=== PATIENT | male | born 1940 | race Caucasian/White ===

== ENCOUNTER 2016-06-10 11:06 | Outpatient (CLI) | payer MEDICARE | END 2016-06-10 11:07 | disposition home or self-care (01) | DX: I48.0 Paroxysmal atrial fibrillation (principal) ==

== ENCOUNTER 2016-07-27 15:16 | Outpatient (CLI) | payer MEDICARE | END 2016-07-27 15:17 | disposition home or self-care (01) | DX: I48.0 Paroxysmal atrial fibrillation (principal) ==

== ENCOUNTER 2016-11-16 10:27 | Outpatient (CLI) | payer MEDICARE | END 2016-11-16 10:28 | disposition home or self-care (01) | LOC: LAB.F 10:27 | PROVIDERS: ATTEND Physician Assistant | DX: I48.0 Paroxysmal atrial fibrillation (principal) | CPT/HCPCS: 85610 ==

== ENCOUNTER 2017-01-05 12:35 | Outpatient (CLI) | payer MEDICARE | END 2017-01-05 12:36 | disposition home or self-care (01) | LOC: LAB.F 12:35 | PROVIDERS: ATTEND Physician Assistant | DX: I48.0 Paroxysmal atrial fibrillation (principal) | CPT/HCPCS: 85610 ==

== ENCOUNTER 2017-05-03 11:10 | Outpatient (CLI) | payer MEDICARE | END 2017-05-03 11:11 | disposition home or self-care (01) | LOC: LAB.F 11:10 | PROVIDERS: ATTEND Physician Assistant | DX: I48.0 Paroxysmal atrial fibrillation (principal) | CPT/HCPCS: 85610 ==

== ENCOUNTER 2017-05-26 09:38 | Outpatient (CLI) | payer MEDICARE | END 2017-05-26 09:39 | disposition home or self-care (01) | LOC: LAB.F 09:38 | PROVIDERS: ATTEND Physician Assistant | DX: I48.0 Paroxysmal atrial fibrillation (principal) | CPT/HCPCS: 85610 ==

== ENCOUNTER 2017-09-23 15:04 | Outpatient (CLI) | payer MEDICARE | END 2017-09-23 15:05 | disposition home or self-care (01) | LOC: LAB.F 15:04 | PROVIDERS: ATTEND Physician Assistant | DX: I48.0 Paroxysmal atrial fibrillation (principal) | CPT/HCPCS: 85610 ==

== ENCOUNTER 2017-10-08 10:38 | Outpatient (CLI) | payer MEDICARE | END 2017-10-08 10:39 | disposition short-term general hospital (02) | LOC: EMS 10:38 | PROVIDERS: ATTEND Surgery | DX: R09.89 Other specified symptoms and signs involving the circulatory and respiratory systems (principal); R53.1 Weakness; R60.0 Localized edema | CPT/HCPCS: A0170; A0425; A0427 ==

== ENCOUNTER 2017-10-19 09:42 | Outpatient (CLI) | payer MEDICARE | END 2017-10-19 09:43 | disposition home or self-care (01) | LOC: LAB.F 09:42 | PROVIDERS: ATTEND Physician Assistant | DX: I48.0 Paroxysmal atrial fibrillation (principal) | CPT/HCPCS: 85610 ==

== ENCOUNTER 2017-12-30 14:05 | Outpatient (CLI) | payer MEDICARE | END 2017-12-30 14:06 | disposition home or self-care (01) | LOC: LAB.F 14:05 | PROVIDERS: ATTEND Physician Assistant | DX: I48.0 Paroxysmal atrial fibrillation (principal) | CPT/HCPCS: 85610 ==

== ENCOUNTER 2018-03-02 14:18 | Outpatient (CLI) | payer MEDICARE | END 2018-03-02 14:19 | disposition home or self-care (01) | LOC: LAB.F 14:18 | PROVIDERS: ATTEND Physician Assistant | DX: I48.0 Paroxysmal atrial fibrillation (principal) | CPT/HCPCS: 85610 ==

== ENCOUNTER 2018-04-29 14:28 | Outpatient (CLI) | payer MEDICARE | END 2018-04-29 14:29 | disposition home or self-care (01) | LOC: LAB.F 14:28 | PROVIDERS: ATTEND Physician Assistant | DX: I48.0 Paroxysmal atrial fibrillation (principal) | CPT/HCPCS: 85610 ==

== ENCOUNTER 2018-05-30 13:28 | Outpatient (CLI) | payer MEDICARE | END 2018-05-30 13:29 | disposition home or self-care (01) | LOC: LAB.F 13:28 | PROVIDERS: ATTEND Physician Assistant | DX: I48.0 Paroxysmal atrial fibrillation (principal) | CPT/HCPCS: 85610 ==

== ENCOUNTER 2019-03-30 14:59 | Outpatient (CLI) | payer MEDICARE, OTHER | END 2019-03-30 15:00 | disposition home or self-care (01) | LOC: LAB.S 14:59 | PROVIDERS: ATTEND Physician Assistant | DX: I48.0 Paroxysmal atrial fibrillation (principal) | CPT/HCPCS: 85610 ==

== ENCOUNTER 2019-05-03 11:16 | Outpatient (CLI) | payer MEDICARE, OTHER | END 2019-05-03 11:17 | disposition short-term general hospital (02) | LOC: EMS 11:16 | PROVIDERS: ATTEND Surgery | DX: R07.9 Chest pain, unspecified (principal); R06.02 Shortness of breath; R39.89 Other symptoms and signs involving the genitourinary system; R53.1 Weakness; R25.8 Other abnormal involuntary movements | CPT/HCPCS: A0425; A0427 ==

== ENCOUNTER 2019-12-12 16:08 | Outpatient (CLI) | payer OTHER | END 2019-12-12 16:09 | disposition home or self-care (01) | LOC: LAB.S 16:08 | PROVIDERS: ATTEND Family Medicine | DX: I48.0 Paroxysmal atrial fibrillation (principal) | CPT/HCPCS: 85610 ==

== ENCOUNTER 2020-03-22 16:44 | Outpatient (CLI) | payer OTHER | END 2020-03-22 16:45 | disposition short-term general hospital (02) | LOC: EMS 16:44 | PROVIDERS: ATTEND Surgery | DX: I46.9 Cardiac arrest, cause unspecified (principal) | CPT/HCPCS: A0425; A0427 ==